=== PATIENT | male | born 1935 | race African-American/Black ===

== ENCOUNTER 2018-03-22 14:06 | Inpatient (IN) | payer OTHER ==
[~2018-03-22] VITALS: Ht 172.7 cm; Wt 81.6 kg
--- NOTE | ~2018-03-22 | EKG ---
[address] [address] ELECTROCARDIOGRAM REPORT Name: PAULA ERVIN Room #: 170-12 ADM IN M.R.#: [id number] Admission: 03/22/18 Attend Phys: Jayson Riley MD Discharge: Date of : 31 Report #: [id number] THIS REPORT FOR: //name// [facility] ED Test Date: 2018-03-22 Test Time: 15:25:33 Pat Name: PAULA ERVIN Department: Room: 170 Gender: M Care Rep: MZOOK : 1935 Requested By: Kd Willard Order Number: [id number] MD: Deo Stanton Measurements Intervals [place] Rate: 69 P: 56 DE: 143 QRS: 263 QRSD: 154 T: 123 QT: 481 QTc: 516 Interpretive Statements Atrial-sensed ventricular-paced complexes No further analysis attempted due to paced rhythm No previous ECG available for comparison Electronically Signed On 03-22-2018 17:11:19 CDT by Deo Stanton [email or web address] <ELECTRONICALLY SIGNED> By: Deo Stanton MD, [facility] 03/22/18 1711 1525 1525 Deo Stanton MD, [facility] /EPI
--- NOTE | ~2018-03-22 | 2DMMODE ---
[facility] [address] [place] [address] 2 D/M-MODE ECHOCARDIOGRAM Name: PAULA ERVIN Room #: 355-P [facility] IN ..#: [id number] Admission: 03/22/18 Attend Phys: Jayson Riley MD Discharge: Date of : 31 Date of Service: 03/23/18 1417 Report #: [id number] THIS REPORT FOR: //name// APPROVED REPORT Study performed: 03/23/2018 13:01:54 EXAM: Comprehensive 2D, Doppler, and color-flow Echocardiogram Patient Location: Echo lab Room #: [facility] Status: routine BSA: 1.95 HR: 85 bpm BP: 116/69 mmHg Rhythm: Irregular Other Information Study Quality: Good Indications Short of breath, dizziness. Hx: CHF, defibrillator. 2D Dimensions RVDd: 43.22 mm LVEF(%): 22.75 (>50%) IVSd: 11.00 (7-11mm) LVOT Diam: 21.39 (18-24mm) LVDd: 66.78 mm PWd: 10.35 (7-11mm) LVDs: 59.62 (25-40mm) Aortic Root: 35.86 mm Cortés's LVEF: 22.75 % Volumes Left Atrial Volume (Systole) Single Plane 4CH: 79.65 mL Single Plane 2CH: 102.79 mL LA ESV Index: 49.00 mL/m2 Aortic Valve AoV Peak Denny.: 1.07 m/s AO Peak Gr.: 4.77 mmHg LVOT Max P.68 mmHg LVOT Max V: 0.80 m/s YADY Vmax: 2.67 cm2 Mitral Valve E/A Ratio: 2.9 MV Decel. Time: 120.05 ms [facility] [place] [address] 2 D/M-MODE ECHOCARDIOGRAM Name: PAULA ERVIN Room #: 355-[facility] IN [facility].#: [id number] Admission: 03/22/18 Attend Phys: Jayson Riley MD Discharge: Date of : 31 Date of Service: 03/23/18 1417 Report #: [id number] MV E Max Denny.: 1.23 m/s MV A Denny.: 0.43 m/s MV PHT: 34.82 ms IVRT: 78.43 ms Pulmonary Valve PV Peak Denny.: 0.56 m/s PV Peak Gr.: 1.25 mmHg Tricuspid Valve TR Peak Denny.: 3.65 m/s RAP Estimate: 10.00 mmHg TR Peak Gr.: 53.57 mmHg PA Pressure: 66.00 mmHg Left Ventricle Left ventricle is moderately dilated. There is normal left ventricular wall thickness. Left ventricular systolic function is severely decreased. LVEF is 20%. Severe diastolic dysfunction is present (restrictive filling). Right Ventricle Right ventricle is mildly dilated. Right ventricle is moderately hypokinetic. Device lead is present in the right ventricle. Atria Left atrium is severely dilated. Right atrium is moderately dilated. Aortic Valve Aortic valve is trileaflet. Mild aortic regurgitation. There is no aortic valvular stenosis. Mitral Valve Mitral valve leaflets are mildly thickened. Moderate to severe mitral regurgitation Tricuspid Valve The tricuspid valve is normal in structure. Mild to moderate tricuspid regurgitation. Estimated PAP is 65-70mmHg. Pulmonic Valve The pulmonary valve is normal in structure. Trace pulmonic regurgitation. Great Vessels The aortic root is normal in size. IVC is dilated and collapses >50% with inspiration. [facility] [address] [place] [address] 2 D/M-MODE ECHOCARDIOGRAM Name: PAULA ERVIN Room #: 355-P [facility] IN ..#: [id number] Admission: 03/22/18 Attend Phys: Jayson Riley MD Discharge: Date of : 31 Date of Service: 03/23/18 1417 Report #: [id number] Pericardium There is no pericardial effusion. <Conclusion> Left ventricle is moderately dilated. Left ventricular systolic function is severely decreased. LVEF is 20%. Right ventricle is mildly dilated. Right ventricle is moderately hypokinetic. Device lead is present in the right ventricle. Left atrium is severely dilated. Right atrium is moderately dilated. Pacemaker lead is present in the right atrium. Aortic valve is trileaflet. Mild aortic regurgitation. Mitral valve leaflets are mildly thickened. Moderate to severe mitral regurgitation The tricuspid valve is normal in structure. Mild to moderate tricuspid regurgitation. Estimated PAP is 65-70mmHg. The pulmonary valve is normal in structure. Trace pulmonic regurgitation. There is no pericardial effusion. <ELECTRONICALLY SIGNED> By: Raj Kirkpatrick MD 03/23/18 1417 141 [id number] Raj Kirkpatrick MD /INF
[2018-03-22 14:07] VITALS: BP 106/58
[2018-03-22 16:06] LABS: HEMATOCRIT 43.4 % (42.0-52.0); HEMOGLOBIN 13.6 gm/dL (14.0-18.0); MCH 24.2 pg (26.0-34.0); MCHC 31.4 g/dL (28.0-37.0); MCV 77.1 fL (80.0-100.0); PLATELET COUNT 156 thou/uL (150-400); RBC 5.63 mil/uL (4.50-6.00); RDW 15.5 % (10.5-14.5); WBC 3.4 thou/uL (4.0-11.0)
[2018-03-22 16:15] LABS: ANION GAP 9 mmol/L (7-16); BUN 16 mg/dL (7-18); CALCIUM 8.9 mg/dL (8.5-10.1); CHLORIDE 107 mmol/L (98-107); CO2 25 mmol/L (21-32); CREATININE 1.7 mg/dL (0.7-1.3); GLUCOSE 92 mg/dL (74-106); POTASSIUM 4.7 mmol/L (3.5-5.1); SODIUM 141 mmol/L (136-145)
[2018-03-22 16:23] LABS: ALBUMIN 3.4 g/dL (3.4-5.0); SGOT 23 U/L (15-37); SGPT 19 U/L (30-65); TOTAL BILIRUBIN 0.7 mg/dL (<0.1-1.0); TOTAL PROTEIN 7.1 g/dL (6.4-8.2); TROPONIN-I < 0.04 ng/mL (<0.06)
[2018-03-22 16:55] LABS: ABSOLUTE NEUTROPHILS 1.7 thou/uL (1.4-8.2)
[2018-03-22 17:10] VITALS: BP 106/58
[2018-03-22 20:10] VITALS: BP 104/52
[2018-03-23 04:30] VITALS: BP 110/61
[2018-03-23 06:12] LABS: HEMATOCRIT 41.2 % (42.0-52.0); HEMOGLOBIN 12.9 gm/dL (14.0-18.0); MCH 24.1 pg (26.0-34.0); MCHC 31.2 g/dL (28.0-37.0); MCV 77.1 fL (80.0-100.0); RBC 5.34 mil/uL (4.50-6.00); RDW 15.5 % (10.5-14.5); WBC 3.4 thou/uL (4.0-11.0)
[2018-03-23 06:21] LABS: CALCIUM 9.4 mg/dL (8.5-10.1); CREATININE 1.7 mg/dL (0.7-1.3); POTASSIUM 4.2 mmol/L (3.5-5.1)
[2018-03-23] MEDS ORDERED: CARVEDILOL12.5 MG PO (07:56)
[2018-03-23] MEDS ORDERED: ALDACTONE25 MG PO (07:57)
[2018-03-23] MEDS ORDERED: COZAAR 50 MG TA50 M2 PO (07:58)
[2018-03-23 08:11] VITALS: BP 165/102
[2018-03-23 11:46] VITALS: BP 116/69
[2018-03-23 14:48] VITALS: BP 132/85
[2018-03-23 20:05] VITALS: BP 101/64
[2018-03-24 04:30] VITALS: BP 111/68
[2018-03-24 05:20] LABS: HEMATOCRIT 44.5 % (42.0-52.0); MCH 24.1 pg (26.0-34.0); MCHC 31.5 g/dL (28.0-37.0); MCV 76.6 fL (80.0-100.0); PLATELET COUNT 162 thou/uL (150-400); RBC 5.81 mil/uL (4.50-6.00); RDW 15.4 % (10.5-14.5); WBC 3.7 thou/uL (4.0-11.0)
[2018-03-24 05:25] LABS: CALCIUM 9.4 mg/dL (8.5-10.1); CREATININE 1.8 mg/dL (0.7-1.3); POTASSIUM 3.8 mmol/L (3.5-5.1)
[2018-03-24 05:44] LABS: ABSOLUTE NEUTROPHILS 1.4 thou/uL (1.4-8.2); ANISOCYTOSIS 1+; ATYPICAL LYMPHS 1 %
[2018-03-24 07:46] VITALS: BP 134/77
[2018-03-24] MEDS ORDERED: AZELASTINE137 MCG/0. (08:30)
[2018-03-24] MEDS ORDERED: ENTRESTO 24 MG1 EACH PO (10:19)
[2018-03-24] MEDS ORDERED: DEMADEX20 MG PO (10:20)
[2018-03-24] MEDS ORDERED: BIDIL TABLET1 EACH PO (10:20)
[2018-03-24 12:13] VITALS: BP 117/74
[2018-03-24 12:35] VITALS: BP 117/74
== END 2018-03-24 13:56 | disposition home or self-care (01) | DRG 291 ==
LOC: ER 14:06 → EROBS 16:36 → 3W 16:36
PROVIDERS: Family Medicine; Hospitalist; Physician Assistant
DX: I13.0 Hypertensive heart and chronic kidney disease with heart failure and stage 1 through stage 4 chronic kidney disease, or unspecified chronic kidney disease (principal); I50.23 Acute on chronic systolic (congestive) heart failure; I47.2 Ventricular tachycardia; E11.22 Type 2 diabetes mellitus with diabetic chronic kidney disease; I42.8 Other cardiomyopathies; N18.9 Chronic kidney disease, unspecified; Z95.0 Presence of cardiac pacemaker; E78.5 Hyperlipidemia, unspecified; I49.3 Ventricular premature depolarization
CPT/HCPCS: 10879